=== PATIENT | male | born 1965 | race Caucasian/White ===

== ENCOUNTER 2018-10-23 06:57 | Day surgery (SDC) | payer OTHER ==
[~2018-10-23 06:57] MED LIST: LACTATED RINGERS 1,000 ML IV SCH
[2018-10-23 07:15] VITALS: TEMP 98.2
[2018-10-23] MEDS ORDERED: PROPOFOL 10 MG/ML 20 ML VIAL IV ONE (07:44)
--- NOTE | 2018-10-23 07:47 | P.GSHP ---
History of Present Illness H&P Date: 10/23/18 Chief Complaint: Screening colonoscopy This a 53-year-old male presents today for screening colonoscopy. Patient denies any significant GI complaints. Past Medical History Past Medical History: Cancer, GERD/Reflux, Hypertension Additional Past Medical History / Comment(s): CANCER: RIGHT KIDNEY AND TESTICULAR. History of Any Multi-Drug Resistant Organisms: None Reported Additional Past Surgical History / Comment(s): RIGHT KIDNEY AND TESTICLE REMOVED Past Anesthesia/Blood Transfusion Reactions: No Reported Reaction Past Psychological History: Depression Smoking Status: Current every day smoker Past Alcohol Use History: Rare Additional Past Alcohol Use History / Comment(s): HAS SMOKED FOR 35 YEARS AND 1PPD. Past Drug Use History: None Reported Medications and Allergies Home Medications Medication Instructions Recorded Confirmed Type Escitalopram [Lexapro] 10 mg PO QAM 10/22/18 10/23/18 History Metoprolol Succinate [Toprol XL] 50 mg PO HS 10/22/18 10/23/18 History Omeprazole 20 mg PO QAM 10/22/18 10/23/18 History amLODIPine [Norvasc] 5 mg PO QAM 10/22/18 10/23/18 History Allergies Allergy/AdvReac Type Severity Reaction Status Date / Time No Known Allergies Allergy Verified 10/23/18 07:08 Surgical - Exam Vital Signs Temp Pulse Resp BP Pulse Ox 98.2 F 70 17 162/76 95 10/23/18 07:13 10/23/18 07:13 10/23/18 07:13 10/23/18 07:13 10/23/18 07:13 - General well developed, well nourished, no distress - Eyes PERRL - ENT normal pinna - Neck no masses - Respiratory normal expansion - Cardiovascular Rhythm: regular - Abdomen Abdomen: soft, non tender Assessment and Plan Assessment: We'll perform screening colonoscopy
--- NOTE | 2018-10-23 08:05 | P.OP ---
Date of Procedure: 10/23/18 Preoperative Diagnosis: Screening colonoscopy Postoperative Diagnosis: Colon polyps Procedure(s) Performed: Colonoscopy Anesthesia: MAC Surgeon: Bhavesh Crespo Pathology: other (With colon polyp, rectal polyp) Condition: stable Disposition: PACU Description of Procedure: The patient's placed on the endoscopy table in the lateral position. He received IV sedation. Digital rectal exam was performed which revealed no abnormalities. The flexible colonoscope was then placed patient anus passed throughout the entire colon. The ileocecal valve was visualized. The cecum, ascending and transverse colon appeared normal. In the descending colon there were no polyps or diverticula seen the scope was then brought back the sigmoid colon and several small polyps removed with the cold forcep. Scope was then brought back the rectum and another polyp was seen and removed with cold forcep. Scope was withdrawn for patient.
[2018-10-23 08:24] VITALS: BP 132/77; PULSE 57; RESP 18
== END 2018-10-23 08:40 | disposition home or self-care (01) ==
LOC: ORWHC2ENDO 06:57
PROVIDERS: ATTEND Surgery
DX: Z12.11 Encounter for screening for malignant neoplasm of colon (principal); K62.1 Rectal polyp; K52.9 Noninfective gastroenteritis and colitis, unspecified; K21.9 Gastro-esophageal reflux disease without esophagitis; I10 Essential (primary) hypertension; F17.210 Nicotine dependence, cigarettes, uncomplicated; F32.9 Major depressive disorder, single episode, unspecified; Z85.528 Personal history of other malignant neoplasm of kidney; Z85.47 Personal history of malignant neoplasm of testis; Z79.899 Other long term (current) drug therapy
CPT/HCPCS: 45380; J2704; 88305

== ENCOUNTER 2019-05-12 07:14 | Inpatient (IN) | payer OTHER ==
[2019-05-12] MEDS ORDERED: NITROGLYCERIN OINT 1 INCH/GM PACKET TOPICAL STA (07:36)
[2019-05-12] MEDS ORDERED: ASPIRIN 81 MG PO STA (07:36)
--- NOTE | 2019-05-12 07:40 | ED ---
General Adult HPI - General Chief complaint: Chest Pain Stated complaint: Chest Pain Time Seen by Provider: 05/12/19 07:20 Source: patient, RN notes reviewed Mode of arrival: ambulatory Limitations: no limitations - History of Present Illness Initial comments: This is a 53-year-old male who presents emergency department with past history significant for borderline diabetes high blood pressure he is unsure about his cholesterol and he is a smoker. Patient also states his grandfather had significant heart disease. Patient comes in today because about an hour and half prior to arrival he had central substernal chest pain that he hasn't had the past. It is not reproducible does not get worse with deep breathing. Patient denied any radiation of the pain. Patient denies any shortness of breath patient denied any nausea. Patient denies any abdominal pain. Patient denies any recent fever chills or cough. Patient patient denies any recent hea vy lifting or trauma. Patient denies any lightheadedness or dizziness. Patient denies headache patient denies any numbness or weakness per patient denies any leg swelling or calf tenderness. - Related Data Home Medications Medication Instructions Recorded Confirmed Escitalopram [Lexapro] 10 mg PO QAM 10/22/18 05/12/19 Metoprolol Succinate [Toprol XL] 50 mg PO HS 10/22/18 05/12/19 Omeprazole 20 mg PO QAM 10/22/18 05/12/19 amLODIPine [Norvasc] 5 mg PO QAM 10/22/18 05/12/19 Aspirin [Children's Aspirin] 324 mg PO ONCE PRN 05/12/19 05/12/19 Allergies Allergy/AdvReac Type Severity Reaction Status Date / Time No Known Allergies Allergy Verified 05/12/19 08:25 Review of Systems ROS Statement: Those systems with pertinent positive or pertinent negative responses have been documented in the HPI. ROS Other: All systems not noted in ROS Statement are negative. Past Medical History Past Medical History: Cancer, GERD/Reflux, Hypertension Additional Past Medical History / Comment(s): 4CANCER: RIGHT KIDNEY AND TESTICULAR.+71+20. History of Any Multi-Drug Resistant Organisms: None Reported Additional Past Surgical History / Comment(s): RIGHT KIDNEY AND TESTICLE REMOVED Past Anesthesia/Blood Transfusion Reactions: No Reported Reaction Past Psychological History: Depression Smoking Status: Current every day smoker Past Alcohol Use History: Rare Past Drug Use History: None Reported General Exam - General Exam Comments Initial Comments: GENERAL: Patient is well-developed and well-nourished. Patient is nontoxic and well- hydrated and is in mild distress. ENT: Neck is soft and supple. No significant lymphadenopathy is noted. Oropharynx is clear. Moist mucous membranes. Neck has full range of motion without eliciting any pain. EYES: The sclera were anicteric and conjunctiva were pink and moist. Extraocular movements were intact and pupils were equal round and reactive to light. Eyelids were unremarkable. PULMONARY: Unlabored respirations. Good breath sounds bilaterally. No audible rales rhonchi or wheezing was noted. CARDIOVASCULAR: There is a regular rate and rhythm without any murmurs gallops or rubs. ABDOMEN: Soft and nontender with normal bowel sounds. SKIN: Skin is clear with no lesions or rashes and otherwise unremarkable. NEUROLOGIC: Patient is alert and oriented x3. Cranial nerves II through XII are grossly intact. Motor and sensory are also intact. Normal speech, volume and content. Symmetrical smile. MUSCULOSKELETAL: Normal extremities with adequate strength and full range of motion. No lower extremity swelling or edema. No calf tenderness. LYMPHATICS: No significant lymphadenopathy is noted PSYCHIATRIC: Normal psychiatric evaluation. Limitations: no limitations Course Vital Signs 05/12/19 05/12/19 05/12/19 07:21 08:00 08:30 Temperature 97.8 F Pulse Rate 79 60 56 L Respiratory 18 20 16 Rate Blood Pressure 155/82 162/82 134/87 O2 Sat by Pulse 96 98 97 Oximetry Medical Decision Making - Medical Decision Making EKG shows normal sinus rhythm at 60 beats a minute VT interval is 162 QRS is 104 QT interval 422 QTC is 422. Patient's EKG shows no ST segment elevation or depression or T wave abnormalities are noted. Chest x-ray shows no acute abnormality Patient was started on heparin. Patient's troponin was elevated. I spoke with Dr. Pruett she agreed to admit the patient admitted the patient I spoke with cardiology Dr. Pruitt. I continued heparin and aspirin Nitropaste on the floor. - Lab Data Result diagrams: 05/12/19 07:35 05/12/19 07:35 Lab Results 05/12/19 05/12/19 05/12/19 Range/Units 07:35 07:35 07:35 WBC 6.7 (3.8-10.6) k/uL RBC 4.85 (4.30-5.90) m/uL Hgb 15.1 (13.0-17.5) gm/dL Hct 43.5 (39.0-53.0) % MCV 89.7 (80.0-100.0) fL MCH 31.1 (25.0-35.0) pg MCHC 34.7 (31.0-37.0) g/dL RDW 13.1 (11.5-15.5) % Plt Count 208 (150-450) k/uL Neutrophils % 71 % Lymphocytes % 20 % Monocytes % 5 % Eosinophils % 2 % Basophils % 1 % Neutrophils # 4.8 (1.3-7.7) k/uL Lymphocytes # 1.3 (1.0-4.8) k/uL Monocytes # 0.4 (0-1.0) k/uL Eosinophils # 0.1 (0-0.7) k/uL Basophils # 0.1 (0-0.2) k/uL PT 9.6 (9.0-12.0) sec INR 0.9 (<1.2) APTT 23.2 (22.0-30.0) sec Sodium 140 (137-145) mmol/L Potassium 3.8 (3.5-5.1) mmol/L Chloride 105 (98-107) mmol/L Carbon Dioxide 28 (22-30) mmol/L Anion Gap 7 mmol/L BUN 19 (9-20) mg/dL Creatinine 1.11 (0.66-1.25) mg/dL Est GFR (CKD-EPI)AfAm 87 (>60 ml/min/1.73 sqM) Est GFR (CKD-EPI)NonAf 76 (>60 ml/min/1.73 sqM) Glucose 122 H (74-99) mg/dL Calcium 8.9 (8.4-10.2) mg/dL Magnesium 2.0 (1.6-2.3) mg/dL Total Bilirubin 0.8 (0.2-1.3) mg/dL AST 17 (17-59) U/L ALT 20 L (21-72) U/L Alkaline Phosphatase 87 (38-126) U/L Troponin I (0.000-0.034) ng/mL Total Protein 6.7 (6.3-8.2) g/dL Albumin 3.9 (3.5-5.0) g/dL 05/12/19 Range/Units 07:35 WBC (3.8-10.6) k/uL RBC (4.30-5.90) m/uL Hgb (13.0-17.5) gm/dL Hct (39.0-53.0) % MCV (80.0-100.0) fL MCH (25.0-35.0) pg MCHC (31.0-37.0) g/dL RDW (11.5-15.5) % Plt Count (150-450) k/uL Neutrophils % % Lymphocytes % % Monocytes % % Eosinophils % % Basophils % % Neutrophils # (1.3-7.7) k/uL Lymphocytes # (1.0-4.8) k/uL Monocytes # (0-1.0) k/uL Eosinophils # (0-0.7) k/uL Basophils # (0-0.2) k/uL PT (9.0-12.0) sec INR (<1.2) APTT (22.0-30.0) sec Sodium (137-145) mmol/L Potassium (3.5-5.1) mmol/L Chloride (98-107) mmol/L Carbon Dioxide (22-30) mmol/L Anion Gap mmol/L BUN (9-20) mg/dL Creatinine (0.66-1.25) mg/dL Est GFR (CKD-EPI)AfAm (>60 ml/min/1.73 sqM) Est GFR (CKD-EPI)NonAf (>60 ml/min/1.73 sqM) Glucose (74-99) mg/dL Calcium (8.4-10.2) mg/dL Magnesium (1.6-2.3) mg/dL Total Bilirubin (0.2-1.3) mg/dL AST (17-59) U/L ALT (21-72) U/L Alkaline Phosphatase (38-126) U/L Troponin I 0.137 H* (0.000-0.034) ng/mL Total Protein (6.3-8.2) g/dL Albumin (3.5-5.0) g/dL Critical Care Time Critical Care Time: Yes Total Critical Care Time: 35 Disposition Clinical Impression: Non-STEMI (non-ST elevated myocardial infarction) Disposition: ADMITTED IP TO THIS HOSP Referrals: Aki Apple DO [Primary Care Provider] - 1-2 days Time of Disposition: 08:52
[2019-05-12 07:53] LABS: Basophils # (A) 0.1 k/uL (0-0.2); Basophils % (A) 1 %; Eosinophils # (A) 0.1 k/uL (0-0.7); Eosinophils % (A) 2 %; HCT 43.5 % (39.0-53.0); HGB 15.1 gm/dL (13.0-17.5); Lymphocytes # (A) 1.3 k/uL (1.0-4.8); Lymphocytes % (A) 20 %; MCH 31.1 pg (25.0-35.0); MCHC 34.7 g/dL (31.0-37.0); MCV 89.7 fL (80.0-100.0); Mean Platelet Volume 5.8; Monocytes # (A) 0.4 k/uL (0-1.0); Monocytes % (A) 5 %; Neutrophils # (A) 4.8 k/uL (1.3-7.7); Neutrophils % (A) 71 %; Platelet Count 208 k/uL (150-450); RBC 4.85 m/uL (4.30-5.90); RDW 13.1 % (11.5-15.5); WBC 6.7 k/uL (3.8-10.6)
[2019-05-12 08:00] LABS: INR 0.9 (<1.2); Partial Thromboplastin Time 23.2 sec (22.0-30.0); Prothrombin Time 9.6 sec (9.0-12.0)
--- NOTE | 2019-05-12 08:02 | XR ---
EXAMINATION TYPE: XR chest 2V DATE OF EXAM: 05/12/2019 HISTORY: Chest Pain. REFERENCE: Previous study dated 04/18/2011. FINDINGS: There is some scarring or atelectasis at the left lung base. Lungs are otherwise clear. Ple ural space are clear. Heart size upper limits of normal. IMPRESSION: SCARRING VERSUS ATELECTASIS, LEFT LUNG BASE.
[2019-05-12 08:07] LABS: Albumin 3.9 g/dL (3.5-5.0); Calcium 8.9 mg/dL (8.4-10.2); Potassium 3.8 mmol/L (3.5-5.1); Total Bilirubin 0.8 mg/dL (0.2-1.3); Total Protein 6.7 g/dL (6.3-8.2)
[2019-05-12] MEDS ORDERED: HEPARIN SODIUM,PORCINE 5,000 UNIT/ML 1 ML VIAL IV ONE (08:35)
[2019-05-12] MEDS: HEPARIN SOD,PORK IN 0.45% NACL 25,000 UNIT in 0.45% NACL 1 250ML.BAG IV SCH (08:47)
[2019-05-12] MEDS ORDERED: NITROGLYCERIN SL TABS 0.4 MG TAB SUBLINGUAL PRN (08:54)
[2019-05-12] MEDS ORDERED: PANTOPRAZOLE 40 MG/10 ML VIAL IVP SCH (10:15)
[2019-05-12 10:25] VITALS: BMI 39.8
--- NOTE | 2019-05-12 11:01 | P.HPIM ---
History of Present Illness 53-year-old with comments of epigastric abdominal burning sensation patient ate part of presents today. Patient's pain is about 2/10 in severity nonradiating and nonexertional little not associated with food not associated deep breathing denied any lightheadedness or diaphoresis. Patient has elevated troponin of 0.137 patient was started on IV heparin was admitted. Will repeat 2 more sets of troponins patient probably has non-ST elevation microinfarction involving RCA. Echo EKG please refer to cardiology documentation for EKG Review of Systems REVIEW OF SYSTEMS: CONSTITUTIONAL: No fever, no malaise, no fatigue. HEENT: No recent visual problems or hearing problems. Denied any sore throat. CARDIOVASCULAR: No orthopnea, PND, no palpitations, no syncope. PULMONARY: No shortness of breath, no cough, no hemoptysis. GASTROINTESTINAL: No diarrhea, no nausea, no vomiting. NEUROLOGICAL: No headaches, no weakness, no numbness. HEMATOLOGICAL: Denies any bleeding or petechiae. GENITOURINARY: Denies any burning micturition, frequency, or urgency. MUSCULOSKELETAL/RHEUMATOLOGICAL: Denies any joint pain, swelling, or any muscle pain. ENDOCRINE: Denies any polyuria or polydipsia. The rest of the 14-point review of systems is negative. Past Medical History Past Medical History: Cancer, GERD/Reflux, Hypertension Additional Past Medical History / Comment(s): 4CANCER: RIGHT KIDNEY AND TESTICULAR.+71+20. History of Any Multi-Drug Resistant Organisms: None Reported Additional Past Surgical History / Comment(s): RIGHT KIDNEY AND TESTICLE REMOVED Past Anesthesia/Blood Transfusion Reactions: No Reported Reaction Past Psychological History: Depression Smoking Status: Current every day smoker Past Alcohol Use History: Rare Additional Past Alcohol Use History / Comment(s): HAS SMOKED FOR 35 YEARS AND 1PPD. Past Drug Use History: None Reported Medications and Allergies Home Medications Medication Instructions Recorded Confirmed Type Escitalopram [Lexapro] 10 mg PO QAM 10/22/18 05/12/19 History Metoprolol Succinate [Toprol XL] 50 mg PO HS 10/22/18 05/12/19 History Omeprazole 20 mg PO QAM 10/22/18 05/12/19 History amLODIPine [Norvasc] 5 mg PO QAM 10/22/18 05/12/19 History Aspirin [Children's Aspirin] 324 mg PO ONCE PRN 05/12/19 05/12/19 History Allergies Allergy/AdvReac Type Severity Reaction Status Date / Time No Known Allergies Allergy Verified 05/12/19 08:25 Physical Exam Vitals: Vital Signs Temp Pulse Pulse Resp BP BP Pulse Ox 05/12/19 09:30 97.7 F 55 L 16 142/78 95 05/12/19 09:00 97.7 F 57 L 16 150/89 97 05/12/19 08:30 56 L 16 134/87 97 05/12/19 08:00 60 20 162/82 98 05/12/19 07:21 97.8 F 79 18 155/82 96 Intake and Output 05/11/19 05/12/19 05/12/19 22:59 06:59 14:59 Other: Weight 143.789 kg PHYSICAL EXAMINATION: GENERAL: The patient is alert and oriented x3, not in any acute distress. Obese HEENT: Pupils are round and equally reacting to light. EOMI. No scleral icterus. No conjunctival pallor. Normocephalic, atraumatic. No pharyngeal erythema. No thyromegaly. CARDIOVASCULAR: S1 and S2 present. No murmurs, rubs, or gallops. PULMONARY: Chest is clear to auscultation, no wheezing or crackles. ABDOMEN: Soft, nontender, nondistended, normoactive bowel sounds. No palpable organomegaly. MUSCULOSKELETAL: No joint swelling or deformity. EXTREMITIES: No cyanosis, clubbing, or pedal edema. NEUROLOGICAL: Gross neurological examination did not reveal any focal deficits. SKIN: No rashes. Results CBC & Chem 7: 05/12/19 07:35 05/12/19 07:35 Labs: Abnormal Lab Results - Last 24 Hours (Table) 05/12/19 05/12/19 Range/Units 07:35 07:35 Glucose 122 H (74-99) mg/dL ALT 20 L (21-72) U/L Troponin I 0.137 H* (0.000-0.034) ng/mL Thrombosis Risk Factor Assmnt - Choose All That Apply Each Factor Represents 1 point: Age 41-60 years, Obesity (BMI >25) Thrombosis Risk Factor Assessment Total Risk Factor Score: 2 Thrombosis Risk Factor Assessment Level: Low Risk Assessment and Plan Plan: -Possible non-ST elevation microinfarction patient probably has inferior wall myocardial patient will be continued on IV heparin the other consideration is gaseous with reflux disease patient will be started on Protonix. -Gastroesophageal reflux disease next and-hypertension -Nicotine use: Counseling was provided -Depression -For above-mentioned chronic medical problems patient will be resumed on nicolas ropriate medications
[2019-05-12] MEDS: NITROGLYCERIN OINT 1 INCH/GM PACKET TOPICAL SCH ×3 (11:38→23:20)
[2019-05-12] MEDS: amLODIPine 5 MG TAB PO SCH (11:38)
[2019-05-12] MEDS: ATORVASTATIN 40 MG TAB PO SCH (12:40)
--- NOTE | 2019-05-12 13:35 | P.CRDCN ---
History of Present Illness Consult date: 05/12/19 Reason for Consult (text): Chest pain. Chief complaint: Chest pian History of present illness: HISTORY OF PRESENT ILLNESS AND PLAN: This is a 53-year-old male with history of borderline DM, hypertension, family history of CAD, GERD and current smoking one half pack per day x 30 years. Patient presents in the emergency department with complaints of mid sternal burning chest pressure that woke him from his sleep this morning. Patient had no nausea or diaphoresis with the episode. No nitroglycerin use. Patient states he went to a birthday green party yesterday for his 1-year-old grandchild, may have overeaten pizza and cake. Pt states he has a significant history of GERD. Patient currently resting comfortably in bed. Patient has no current chest pain, chest pressure, shortness of breath or palpitations. EKG shows sinus bradycardia, heart rate 58. Patient continues with IV heparin and IV Protonix. Patient has never followed with cardiology. PCP Dr. Apple. SIGNIFICANT PAST MEDICAL HISTORY: Borderline DM, hypertension, family history of CAD, GERD and current smoking one half pack per day x 30 years. PAST SURGICAL HISTORY: See list. EKG shows [SB], heart rate 58 bpm. Troponins positive x1. 0.137 SIGNIFICANT LABORATORY VALUES: CBC WNL. BMP WNL. Glucose 122. Chest x-ray [No acute process. Possible left atelectasis.]. No prior echo or stress testing known. REVIEW OF SYSTEMS: CONSTITUTIONAL: [Denies fever. Denies chills.] EYES: Denies blurred vision. [Denies blurred vision or vision changes. Denies eye pain.] EARS, NOSE, MOUTH & THROAT: [Denies headache. Denies sore throat. Denies ear pain Denies hemoptysis.] CARDIOVASCULAR: [Complains of prior burning chest pain/pressure that was midsternal. Denies shortness of breath. Denies orthopnea. Denies PND. Denies pa lpitations.] RESPIRATORY: [Denies cough. Denies shortness of breath. ] GASTROINTESTINAL: [Denies abdominal pain or distention. Denies diarrhea. Denies constipation. Denies nausea. Denies vomiting. Complains of heartburn/GERD.] MUSCULOSKELETAL: [Denies myalgias.] INTEGUMENTARY: [Denies pruitis. Denies rash.] ENDOCRINE: [Denies fatigue. Denies weight change. Denies polydipsia. Denies polyurina Denies heat/cold intolerance.] GENITOURINARY:[ Denies burning, hematuria or urgency with micturation.] HEMATOLOGIC: [Denies history of anemia. Denies bleeding.] NEUROLOGIC: [Denies numbness. Denies tingling. Denies weakness.] PSYCHIATRIC: [Denies anxiety. Denies depression.] PHYSICAL EXAM: VITAL SIGNS: VSS. GENERAL: Well developed, in no acute distress. HEENT: Head is atraumatic, normocephalic. Pupils are equal, round. Extra ocular movements intact. Mucous membranes moist. Neck supple. No JVD. No carotid bruit. No thyromegaly. LUNGS: Clear to auscultation no wheezes, rales or rhonchi. No chest wall tenderness on palpation or with deep breathing. HEART: Regular rate and rhythm, no rubs or gallops. S1 and S2 heard. No murmur. ABDOMEN: Abdominal exam, WNL. Bowel sounds x4 quads. Soft, non-tender, without masses, organomegaly, or abdominal aorta enlargement. EXTREMITIES/VASCULAR: Extremities have easily palpable radial, femoral, dorsalis pedis and posterior tibial pulses. No cyanosis, calf tenderness. No BLE edema. NEUROLOGIC: Patient is awake, alert and oriented x3. No focal neurologic abnormalities. FINAL IMPRESSION: 1. [NSTEMI]. 2. [Hypertension]. 3. [GERD]. 4. Smoking 1/2 PPD currently 5. Family history of CAD PLAN: [Patient to echocardiogram. START Lipitor 40 mg daily. Continue same all other medical/medication regime. Smoking cessation education. Heart healthy diet. Nothing by mouth after midnight. If symptoms re-occur or troponin p rofile continues with elevation will consider cardiac cath in a.m.] Nurse Practitioner note has been reviewed by the Physician. Signing provider agrees with the documented findings, assessment and plan of care. Past Medical History Past Medical History: Cancer, GERD/Reflux, Hypertension Additional Past Medical History / Comment(s): 4CANCER: RIGHT KIDNEY AND TESTICULAR.+71+20. History of Any Multi-Drug Resistant Organisms: None Reported Additional Past Surgical History / Comment(s): RIGHT KIDNEY AND TESTICLE REMOVED Past Anesthesia/Blood Transfusion Reactions: No Reported Reaction Past Psychological History: Depression Smoking Status: Current every day smoker Past Alcohol Use History: Rare Additional Past Alcohol Use History / Comment(s): HAS SMOKED FOR 35 YEARS AND 1PPD. Past Drug Use History: None Reported Medications and Allergies Home Medications Medication Instructions Recorded Confirmed Type Escitalopram [Lexapro] 10 mg PO QAM 10/22/18 05/12/19 History Metoprolol Succinate [Toprol XL] 50 mg PO HS 10/22/18 05/12/19 History Omeprazole 20 mg PO QAM 10/22/18 05/12/19 History amLODIPine [Norvasc] 5 mg PO QAM 10/22/18 05/12/19 History Aspirin [Children's Aspirin] 324 mg PO ONCE PRN 05/12/19 05/12/19 History Allergies Allergy/AdvReac Type Severity Reaction Status Date / Time No Known Allergies Allergy Verified 05/12/19 08:25 Physical Exam Vitals: Vital Signs Temp Pulse Pulse Resp BP BP Pulse Ox 05/12/19 12:00 97.7 F 54 L 16 134/72 94 L 05/12/19 09:30 97.7 F 55 L 16 142/78 95 05/12/19 09:00 97.7 F 57 L 16 150/89 97 05/12/19 08:30 56 L 16 134/87 97 05/12/19 08:00 60 20 162/82 98 05/12/19 07:21 97.8 F 79 18 155/82 96 Intake and Output 05/11/19 05/12/19 05/12/19 22:59 06:59 14:59 Intake Total 360 Balance 360 Intake: Oral 360 Other: Weight 143.789 kg Results 05/12/19 07:35 05/12/19 07:35 Cardiac Enzymes 05/12/19 05/12/19 Range/Units 07:35 07:35 AST 17 (17-59) U/L Troponin I 0.137 H* (0.000-0.034) ng/mL Coagulation 05/12/19 Range/Units 07:35 PT 9.6 (9.0-12.0) sec APTT 23.2 (22.0-30.0) sec CBC 05/12/19 Range/Units 07:35 WBC 6.7 (3.8-10.6) k/uL RBC 4.85 (4.30-5.90) m/uL Hgb 15.1 (13.0-17.5) gm/dL Hct 43.5 (39.0-53.0) % Plt Count 208 (150-450) k/uL Comprehensive Metabolic Panel 05/12/19 Range/Units 07:35 Sodium 140 (137-145) mmol/L Potassium 3.8 (3.5-5.1) mmol/L Chloride 105 (98-107) mmol/L Carbon Dioxide 28 (22-30) mmol/L BUN 19 (9-20) mg/dL Creatinine 1.11 (0.66-1.25) mg/dL Glucose 122 H (74-99) mg/dL Calcium 8.9 (8.4-10.2) mg/dL AST 17 (17-59) U/L ALT 20 L (21-72) U/L Alkaline Phosphatase 87 (38-126) U/L Total Protein 6.7 (6.3-8.2) g/dL Albumin 3.9 (3.5-5.0) g/dL Current Medications Generic Name Dose Route Start Last Admin Trade Name Freq PRN Reason Stop Dose Admin Amlodipine Besylate 5 mg 05/12/19 11:00 05/12/19 11:38 Norvasc PO 5 mg QAM [facility] Administration Aspirin 325 mg 05/13/19 09:00 Aspirin PO DAILY [facility] Atorvastatin Calcium 40 mg 05/12/19 12:00 05/12/19 12:40 Lipitor PO 40 mg DAILY [facility] Administration Escitalopram Oxalate 10 mg 05/13/19 09:00 Lexapro PO QAM [facility] Heparin Sodium/Sodium Chloride 250 mls @ 10.001 mls/hr 05/12/19 08:45 05/12/19 08:47 25,000 unit/ Sodium Chloride IV 6.955 units/kg/hr .Q24H VITO 10.001 mls/hr Administration Protocol 6.955 UNITS/KG/HR Metoprolol Succinate 50 mg 05/12/19 21:00 Toprol Xl PO HS [facility] Nitroglycerin 0.4 mg 05/12/19 08:54 Nitrostat SUBLINGUAL Q5M PRN Chest Pain Nitroglycerin 1 inch 05/12/19 12:00 05/12/19 11:38 Nitro-Bid Oint TOPICAL 1 inch Q6HR VITO Administration Pantoprazole Sodium 40 mg 05/13/19 07:30 Protonix PO AC-[id number] VITO Intake and Output 05/11/19 05/12/19 05/12/19 22:59 06:59 14:59 Intake Total 360 Balance 360 Intake: Oral 360 Other: Weight 143.789 kg Patient Weight 05/13/19 06:59 Weight 143.789 kg 05/12/19 07:35 05/12/19 07:35 - EKG Interpretation EKG shows: bradycardia EKG Interpretations (text) SB
[2019-05-12] MEDS ORDERED: HEPARIN SODIUM,PORCINE 5,000 UNIT/ML 1 ML VIAL IV STA (15:18)
[2019-05-12] MEDS ORDERED: METOPROLOL SUCCINATE (ER) 50 MG TAB.ER.24H PO SCH (21:00)
[2019-05-13] MEDS: HEPARIN SOD,PORK IN 0.45% NACL 25,000 UNIT in 0.45% NACL 1 250ML.BAG IV SCH (06:39)
[2019-05-13] MEDS: PANTOPRAZOLE 40 MG TABLET PO SCH (06:39)
[2019-05-13] MEDS: NITROGLYCERIN OINT 1 INCH/GM PACKET TOPICAL SCH (06:39)
[2019-05-13 06:46] LABS: Cholesterol 151 mg/dL (<200); HDL Cholesterol 32 mg/dL (40-60); LDL Cholesterol,Calculated 97 mg/dL (0-99); Triglycerides 109 mg/dL (<150)
[2019-05-13] MEDS ORDERED: SODIUM CHLORIDE 0.9% 1,000 ML in EMPTY BAG 1 BAG IV ONE (07:36)
[2019-05-13] MEDS ORDERED: NITROGLYCERIN SL TABS 0.4 MG TAB SUBLINGUAL PRN (07:36)
[2019-05-13] MEDS ORDERED: ASPIRIN 325 MG TAB PO STA (07:36)
[2019-05-13] MEDS ORDERED: ALPRAZolam 0.5 MG TAB PO PRN (07:36)
[2019-05-13] MEDS ORDERED: ALPRAZolam 0.25 MG TAB PO PRN (07:36)
[2019-05-13] MEDS ORDERED: ATORVASTATIN 80 MG TAB PO STA (07:36)
[2019-05-13] MEDS: ATORVASTATIN 40 MG TAB PO SCH (07:37)
[2019-05-13] MEDS: amLODIPine 5 MG TAB PO SCH (08:11)
[2019-05-13] MEDS: ESCITALOPRAM 10 MG TAB PO SCH (08:11)
[2019-05-13] MEDS ORDERED: ASPIRIN 325 MG TAB PO SCH (09:00)
[2019-05-13] MEDS ORDERED: VERAPAMIL 2.5 MG/ML 2 ML AMP ONE (09:10)
[2019-05-13] MEDS ORDERED: LIDOCAINE 1% INJ 10MG/ML (20 ML MDV) ONE (09:11)
[2019-05-13] MEDS ORDERED: HEPARIN SODIUM 1,000 UN/ML (10ML VL) ONE (09:11)
[2019-05-13] MEDS ORDERED: MIDAZOLAM PF (FBP) 2 MG/2 ML VIAL IVP ONE (09:30)
[2019-05-13] MEDS ORDERED: LIDOCAINE 1% INJ 10MG/ML (20 ML MDV) SQ ONE (09:34)
[2019-05-13] MEDS ORDERED: HEPARIN SODIUM 1,000 UN/ML (10ML VL) IV ONE (09:39)
[2019-05-13] MEDS ORDERED: VERAPAMIL SYRINGE (5 MG/10 ML) INTRAARTER ONE ×2 (09:39→10:45)
[2019-05-13] MEDS ORDERED: IV FLUID CONTINUATION 1,000 ML IV ONE (09:40)
[2019-05-13] MEDS ORDERED: HYDROmorphone 1 MG/ML 1 ML SYRINGE ONE (10:06)
[2019-05-13] MEDS ORDERED: HYDROmorphone 1 MG/ML 1 ML SYRINGE IVP ONE (10:12)
[2019-05-13] MEDS ORDERED: BIVALIRUDIN 250 MG in SODIUM CHLORIDE 0.9% 50 ML IV ONE ×2 (10:15→10:41)
[2019-05-13] MEDS ORDERED: BIVALIRUDIN BOLUS 250 MG/50 ML IV ONE (10:15)
[2019-05-13] MEDS ORDERED: NITROGLYCERIN 1000MCG/10ML SYRINGE INTRACORON ONE ×2 (10:25→10:39)
[2019-05-13] MEDS ORDERED: TICAGRELOR 90 MG TAB ONE (10:48)
[2019-05-13] MEDS ORDERED: TICAGRELOR 90 MG TAB PO ONE (10:52)
[2019-05-13] MEDS ORDERED: IOPAMIDOL-370 125ML BTL INJ ONE ×2 (10:52)
[2019-05-13] MEDS ORDERED: HYDROcodone/APAP 7.5-325MG 1 EACH TAB PO ONE (12:54)
[2019-05-13] MEDS ORDERED: LOSARTAN 50 MG TAB PO SCH (21:00)
--- NOTE | 2019-05-13 21:53 | PCN ---
PROCEDURE NOTE DATE OF SERVICE: 05/13/2019 PROCEDURES: 1. Left heart catheterization and coronary angiography. 2. Percutaneous transluminal coronary angioplasty and stenting of mid LAD. 3. Fractional flow reserve assessment of mid LAD. PERFORMED BY: Dr. Jes Pruitt CLINICAL INFORMATION: Mr. Addison Zazueta is a very obese 53-year-old gentleman with history of hypertension and smoking who came into the hospital yesterday with chest pain suggestive of angina. He had elevated troponin suggestive of a [id number] AL. He was advised cardiac catheterization after due discussion regarding risks, benefits and options. PROCEDURE NOTE: Under local anesthesia and strict aseptic precautions, a 6-Serbian introducer was placed in the right radial artery. Using a JL4 and a JR4 catheter, I performed selective coronary angiography of the coronary arteries. I also used the same right catheter to check LV pressures. LV gram was not performed. I noted that there was a mid LAD lesion along with a small occlusion of a small septal branch. I suggested that I will perform an FFR of the LAD and try to open the septal branch and proceeded to perform this in the same setting. LV gram was not performed. CARDIAC CATHETERIZATION FINDINGS: The left ventricular end-diastolic pressure was about 12 to 13 mmHg without any gradient across the aortic valve. CORONARY ANGIOGRAPHY FINDINGS: RIGHT CORONARY ARTERY: This is a technically dominant vessel, has no significant disease in the proximal and mid portion. Distally it gives off a small PLV, large PDA and supplies a sizable amount of myocardium. No significant disease other than minor irregularities in the right coronary artery. LEFT MAIN CORONARY ARTERY: Short, patent, disease-free vessel that bifurcates into LAD and circumflex. LEFT ANTERIOR DESCENDING CORONARY ARTERY: Good-caliber vessel, quite large in caliber and distribution, gives off a septal branch, and after the septal branch there is an eccentric area of narrowing with haziness, and a small septal branch that comes off from this area is also occluded. Beyond this is another good-sized diagonal branch and then the vessel extends all the way to the apex and curves over the apex to supply the inferoapical portion of the left ventricle. LAD is a very large-caliber, large- distribution vessel. LEFT POSTERIOR CIRCUMFLEX CORONARY ARTERY: Technically a nondominant vessel. Good caliber. Good distribution. Gives off a very high obtuse marginal that runs laterally, has no significant disease. Mid circumflex has about a 70% narrowing, very focal, and beyond it the caliber of the vessel is small and the distribution is also small. Circumflex is nondominant. Left ventriculogram was not performed. FINAL IMPRESSION: This patient has a right-dominant system. He has a large LAD also. Mid LAD has a plaque rupture, about 60% stenosis, with a small septal branch that seems to be occluded. LAD is a very large-distribution vessel. RCA is free of significant disease. Circumflex after a good-sized obtuse marginal in the mid portion has a 70% narrowing, but limited amount of myocardium is being supplied by it beyond the stenosis. LV gram was not performed. Filling pressures are normal. RECOMMENDATIONS: I recommended attempted PCI of the septal or diagonal branch that came off and also FFR and intervention if necessary. INTERVENTION PROCEDURE DETAILS: A JL3.5 guide catheter was used to cannulate the left coronary artery. A run-through wire was used to advance under fluoroscopic guidance and I tried to cross a small stump. This appeared to be a small septal branch with limited flow. I then exchanged this wire and used a Verrata wire and crossed the vessel and crossed the lesion in the mid LAD and kept it distally. After appropriate assessment of zeroing and balancing, IFR was obtained. IFR was about 0.63. Using the same wire, I deployed a 3.5 caliber 12 mm long Xience stent and deployed this at 12 atmospheres. Patient had chest discomfort and EKG changes involving the anterior leads. Excellent angiographic result was achieved. The Verrata wire was deformed. This wire was taken out and a new Verrata wire used. Repeat IFR was performed and this was 1.0. Patient received intracoronary nitroglycerin. He also received Angiomax bolus and infusion. He received 180 mg of Brilinta. The sheath was then taken out and a TR band applied as per protocol with saturation of the fingers of the right hand of about 92%. Excellent angiographic result was achieved without complication. The findings were discussed with the patient. There were no family members available to discuss. MMODL / IJN: [id number] /
--- NOTE | 2019-05-13 23:43 | P.PN ---
Subjective Progress Note Date: 05/13/19 This is a pleasant 53-year-old white male who was admitted to the hospital with acute atypical chest pain and apparent non-STEMI. Patient is currently getting an echocardiogram and en route to get a heart catheterization shortly thereafter. He denies any current chest pain but admits to shortness of breath denies any nausea vomiting or diaphoresis. Objective - Vital Signs Vital signs: Vital Signs Temp 98.2 F 05/13/19 20:23 Pulse 58 L 05/13/19 20:23 Resp 17 05/13/19 20:23 BP 158/78 05/13/19 20:23 Pulse Ox 94 L 05/13/19 20:23 Intake & Output 05/13/19 05/13/19 05/14/19 06:59 18:59 06:59 Intake Total 184.660 975 Output Total 1000 Balance 184.660 -25 Weight 143 kg Intake: IV 255 Intake, IV Titration 184.660 Amount Heparin Sod,Pork in 0.45% 184.660 NaCl 25,000 unit In 0.45 % NaCl 1 250ml.bag @ 6. 955 UNITS/KG/HR 10.001 mls/hr IV .Q24H VITO Rx#: [id number] Oral 720 Output: Urine 1000 Other: # Voids 2 1 - Exam GENERAL: This is a 53-year-old in no apparent distress at the time of examination. Pleasant and cooperative. HEENT: Head is atraumatic, normocephalic. Pupils are equal, round, and reactive to light. Sclerae anicteric. Conjunctivae are clear. Mucus membranes of the mouth are moist. Neck is supple. RESPIRATORY: Clear to auscultation. No wheezes, rales, or rhonchi. No use of accessory muscles. Patient maintaining oxygen saturation greater than 92%. No chest wall tenderness is noted on palpation or with deep breathing. CARDIOVASCULAR: Regular rate and rhythm. S1 and S2 noted. No systolic or diastolic murmur auscultated. No JVD noted. No S3 or S4 noted. GASTROINTESTINAL: No distention noted. Abdomen soft and round. Normal active bowel sounds auscultated x 4 quadrants. No pain or tenderness noted upon palpation. INTEGUMENTARY: No cyanosis. No jaundice. No rashes noted. No cellulitis noted. EXTREMITIES: 2+ peripheral pulses. No evidence of peripheral edema. No calf tenderness noted. NEUROLOGIC: Cranial nerves II-XII intact. PSYCHIATRIC: Awake, alert, and oriented X 3. Appropriate affect. Intact judgement and insight. - Labs CBC & Chem 7: 05/12/19 07:35 05/12/19 07:35 Labs: Abnormal Lab Results - Last 24 Hours (Table) 05/13/19 05/13/19 Range/Units 05:21 05:21 APTT 54.8 H (22.0-30.0) sec HDL Cholesterol 32 L (40-60) mg/dL Assessment and Plan (1) Non-STEMI (non-ST elevated myocardial infarction) Current Visit: Yes Status: Acute Code(s): I21.4 - NON-ST ELEVATION (NSTEMI) MYOCARDIAL INFARCTION SNOMED Code(s): 47310729 (2) Morbid obesity Current Visit: Yes Status: Acute Code(s): E66.01 - MORBID (SEVERE) OBESITY DUE TO EXCESS CALORIES SNOMED Code(s): 272649817 (3) Hypertensive cardiovascular disease Current Visit: Yes Status: Acute Code(s): I11.9 - HYPERTENSIVE HEART DISEASE WITHOUT HEART FAILURE SNOMED Code(s): 76958954 (4) Gastroesophageal reflux disease Current Visit: Yes Status: Acute Code(s): K21.9 - GASTRO-ESOPHAGEAL REFLUX DISEASE WITHOUT ESOPHAGITIS SNOMED Code(s): 768660916 Plan: Plan patient will undergo heart catheterization today. Addendum patient underwent heart catheterization and received angioplasty and stent to the LAD. We'll continue to follow patient's progress.
[2019-05-14 07:02] LABS: Basophils # (A) 0.1 k/uL (0-0.2); Basophils % (A) 1 %; Eosinophils # (A) 0.2 k/uL (0-0.7); Eosinophils % (A) 3 %; HCT 43.6 % (39.0-53.0); HGB 14.2 gm/dL (13.0-17.5); Lymphocytes # (A) 1.5 k/uL (1.0-4.8); Lymphocytes % (A) 21 %; MCH 30.3 pg (25.0-35.0); MCHC 32.5 g/dL (31.0-37.0); MCV 93.2 fL (80.0-100.0); Mean Platelet Volume 6.7; Monocytes # (A) 0.5 k/uL (0-1.0); Monocytes % (A) 7 %; Neutrophils # (A) 4.7 k/uL (1.3-7.7); Neutrophils % (A) 67 %; Platelet Count 194 k/uL (150-450); RBC 4.68 m/uL (4.30-5.90); RDW 13.2 % (11.5-15.5); WBC 7.1 k/uL (3.8-10.6)
[2019-05-14 07:10] LABS: Calcium 8.7 mg/dL (8.4-10.2)
[2019-05-14] MEDS ORDERED: ATORVASTATIN 80 MG TAB PO SCH (09:00)
[2019-05-14] MEDS ORDERED: METOPROLOL SUCCINATE (ER) 50 MG TAB.ER.24H PO SCH (09:00)
[2019-05-14] MEDS ORDERED: TICAGRELOR 90 MG TAB PO SCH (09:00)
[2019-05-14] MEDS ORDERED: ASPIRIN 81 MG PO SCH (09:00)
[2019-05-14] MEDS: HEPARIN SOD,PORK IN 0.45% NACL 25,000 UNIT in 0.45% NACL 1 250ML.BAG IV SCH (09:02)
[2019-05-14] MEDS: amLODIPine 5 MG TAB PO SCH (09:03)
[2019-05-14] MEDS: PANTOPRAZOLE 40 MG TABLET PO SCH (09:03)
[2019-05-14] MEDS: ESCITALOPRAM 10 MG TAB PO SCH (09:03)
[2019-05-14 10:26] VITALS: BP 128/72; PULSE 59; RESP 18; TEMP 97.5
--- NOTE | 2019-05-14 10:47 | P.DS ---
Providers Date of admission: 05/12/19 08:54 Expected date of discharge: 05/14/19 Attending physician: Aki Apple Consults: 05/12/19 08:54 Consult Physician Urgent Consulting Provider: [facility] Consult Reason/Comments: Non-STEMI Do you want consulting provider notified?: Yes Primary care physician: Aki Apple [facility] Course: Final Diagnoses: (1) Non-STEMI (non-ST elevated myocardial infarction), status post cardiac catheterization, angioplasty with stenting of the LAD Current Visit: Yes Status: Acute Code(s): I21.4 - NON-ST ELEVATION (NSTEMI) MYOCARDIAL INFARCTION SNOMED Code(s): 97135207 (2) Morbid obesity Current Visit: Yes Status: Acute Code(s): E66.01 - MORBID (SEVERE) OBESITY DUE TO EXCESS CALORIES SNOMED Code(s): 498730523 (3) Hypertensive cardiovascular disease Current Visit: Yes Status: Acute Code(s): I11.9 - HYPERTENSIVE HEART DISEASE WITHOUT HEART FAILURE SNOMED Code(s): 19307019 (4) Gastroesophageal reflux disease Current Visit: Yes Status: Acute Code(s): K21.9 - GASTRO-ESOPHAGEAL REFLUX DISEASE WITHOUT ESOPHAGITIS SNOMED Code(s): 353162512 Hospital course:This is a pleasant 53-year-old white male who was admitted to the hospital with acute atypical chest pain and apparent non-STEMI. Patient is currently getting an echocardiogram and en route to get a heart catheterization shortly thereafter. He denies any current chest pain but admits to shortness of breath denies any nausea vomiting or diaphoresis. Patient underwent heart catheterization and received angioplasty and stent to the LAD. Tolerated procedure well. Patient will be discharged home today in a stable condition with guarded prognosis, pending final DC recommendations and clearance from cardiology. Exam GENERAL: Alert and oriented 3, no acute distress RESPIRATORY: Clear to auscultation. No wheezes, rales, or rhonchi. CARDIOVASCULAR: Regular rate and rhythm. S1 and S2 noted. No systolic or diastolic murmur auscultated. No JVD noted. No S3 or S4 noted. GASTROINTESTINAL: No distention noted. Abdomen soft and round. Normal active bowel sounds auscultated x 4 quadrants. No pain or tenderness noted upon palpation. NEUROLOGIC: Cranial nerves II-XII intact. No focal deficits. The impression and plan of care has been dictated as directed. : I performed a history and examination of this patient, discussed the same with the dictator. I agree with the dictator's note ,documented as a scribe. Any additional findings or plans will be noted. Patient Condition at Discharge: Stable Plan - Discharge Summary Discharge Rx Participant: Yes New Discharge Prescriptions: New Ticagrelor [Brilinta] 90 mg PO DAILY #30 tab Losartan [Cozaar] 50 mg PO DAILY@2100 #30 tab Atorvastatin [Lipitor] 80 mg PO DAILY #30 tab Nitroglycerin Sl Tabs [Nitrostat] 0.4 mg SUBLINGUAL Q5M PRN #100 tab PRN Reason: Chest Pain Continue amLODIPine [Norvasc] 5 mg PO QAM Metoprolol Succinate [Toprol XL] 50 mg PO HS Escitalopram [Lexapro] 10 mg PO QAM Omeprazole 20 mg PO QAM Aspirin [Children's Aspirin] 324 mg PO ONCE PRN PRN Reason: Chest Pain Discharge Medication List Escitalopram [Lexapro] 10 mg PO QAM 10/22/18 [History] Metoprolol Succinate [Toprol XL] 50 mg PO HS 10/22/18 [History] Omeprazole 20 mg PO QAM 10/22/18 [History] amLODIPine [Norvasc] 5 mg PO QAM 10/22/18 [History] Aspirin [Children's Aspirin] 324 mg PO ONCE PRN 05/12/19 [History] Atorvastatin [Lipitor] 80 mg PO DAILY #30 tab 05/14/19 [Rx] Losartan [Cozaar] 50 mg PO DAILY@2100 #30 tab 05/14/19 [Rx] Nitroglycerin Sl Tabs [Nitrostat] 0.4 mg SUBLINGUAL Q5M PRN #100 tab 05/14/19 [Rx] Ticagrelor [Brilinta] 90 mg PO DAILY #30 tab 05/14/19 [Rx] Follow up Appointment(s)/Referral(s): Aki Apple DO [Primary Care Provider] - 1 Week Davida Pruitt MD [STAFF PHYSICIAN] - 1 Week (Office will call with follow up appointment. ) Ambulatory/Diagnostic Orders: Complete Blood Count w/diff [LAB.AMB] Time Frame: 1 Week, Location: None Selected Patient Instructions/Handouts: How to Stop Smoking (DC), Heart Healthy Diet (DC), Coronary Intravascular Stent Placement (DC) Activity/Diet/Wound Care/Special Instructions: Pending final DC recommendations/clearance from cardiology
--- NOTE | 2019-05-14 12:01 | ECHOF ---
Referral Reason:chest pain MEASUREMENTS -------- HEIGHT: 182.9 cm WEIGHT: 142.9 kg BP: 142/76 RVIDd: 3.2 cm (< 3.3) IVSd: 1.3 cm (0.6 - 1.1) LVIDd: 5.1 cm (3.9 - 5.3) LVPWd: 1.5 cm (0.6 - 1.1) IVSs: 1.6 cm LVIDs: 3.9 cm LVPWs: 1.6 cm LA Diam: 4.8 cm (2.7 - 3.8) LAESV Index (A-L): 41.44 ml/m Ao Diam: 3.3 cm (2.0 - 3.7) AV Cusp: 2.2 cm (1.5 - 2.6) LA Diam: 4.8 cm (2.7 - 3.8) MV EXCURSION: 22.256 mm (> 18.000) MV EF SLOPE: 88 mm/s (70 - 150) EPSS: 0.3 cm MV E Oh: 0.60 m/s MV DecT: 195 ms MV A Oh: 0.83 m/s MV E/A Ratio: 0.72 RAP: 5.00 mmHg RVSP: 17.05 mmHg TAPSE: 24.30 mm FINDINGS -------- Sinus rhythm. This was a technically adequate study. The left ventricular size is normal. There is mild concentric left ventricular hypertrophy. Overa ll left ventricular systolic function is low-normal with, an EF between 50 - 55 %. The diastolic fi lling pattern is normal for the age of the patient 9.83. The right ventricle is normal in size. The left atrium is markedly dilated. LA is severely dilated >40 ml/m2 The right atrial size is normal. There is mild aortic valve sclerosis. There is no evidence of aortic regurgitation. Mild mitral annular calcification present. Mild mitral regurgitation is present. Mild tricuspid regurgitation present. Right ventricular systolic pressure is normal at < 35 mmHg. There is no evidence of pulmonary hypertension. There is no pulmonic regurgitation present. The aortic root size is normal. There is no pericardial effusion. CONCLUSIONS -------- 1. Sinus rhythm. 2. This was a technically adequate study. 3. The left ventricular size is normal. 4. There is mild concentric left ventricular hypertrophy. 5. Overall left ventricular systolic function is low-normal with, an EF between 50 - 55 %. 6. The diastolic filling pattern is normal for the age of the patient 9.83 7. The right ventricle is normal in size. 8. The left atrium is markedly dilated. 9. LA is severely dilated >40 ml/m2 10. The right atrial size is normal. 11. There is mild aortic valve sclerosis. 12. Mild mitral annular calcification present. 13. Mild mitral regurgitation is present. 14. Mild tricuspid regurgitation present. 15. Right ventricular systolic pressure is normal at < 35 mmHg. 16. There is no evidence of pulmonary hypertension. 17. There is no pulmonic regurgitation present. 18. The aortic root size is normal. 19. There is no pericardial effusion. FRUIT TESTER: Augusta Yuan RDCS
--- NOTE | 2019-05-14 12:57 | PN ---
PROGRESS NOTE Mr. Zazueta underwent PTCA and stenting of mid LAD, plaque rupture by the right radial approach, is doing well. Echo results are still pending. Vitals are stable. Labs are good. EKG is unremarkable. Vitals are stable. S1, S2 heard normally. Lungs are clear. Heart sounds heard distantly. Abdomen and lower extremity exam unchanged. The patient was advised to quit smoking. Continue current medications. Possible discharge today and I will see him in the office in one week. Advised not to return to work until further evaluation. Counseled regarding the need to quit smoking. MMODL / IJN: [id number] /
== END 2019-05-14 12:51 | disposition home or self-care (01) | DRG 247 ==
LOC: EC 07:14 → 3SCARD 08:54
PROVIDERS: ADMIT Family Medicine; ATTEND Family Medicine
PROC: 027034Z Dilation of Coronary Artery, One Artery with Drug-eluting Intraluminal Device, Percutaneous Approach (ICD-10-PCS; principal; 2019-05-13 08:25)
PROC: B2111ZZ Fluoroscopy of Multiple Coronary Arteries using Low Osmolar Contrast (ICD-10-PCS; principal; 2019-05-13 08:25)
PROC: 4A023N7 Measurement of Cardiac Sampling and Pressure, Left Heart, Percutaneous Approach (ICD-10-PCS; principal; 2019-05-13 08:25)
DX: I21.4 Non-ST elevation (NSTEMI) myocardial infarction (principal); I25.119 Atherosclerotic heart disease of native coronary artery with unspecified angina pectoris; E66.01 Morbid (severe) obesity due to excess calories; F17.210 Nicotine dependence, cigarettes, uncomplicated; F32.9 Major depressive disorder, single episode, unspecified; Z71.6 Tobacco abuse counseling; R73.03 Prediabetes; I11.9 Hypertensive heart disease without heart failure; K21.9 Gastro-esophageal reflux disease without esophagitis; Z82.49 Family history of ischemic heart disease and other diseases of the circulatory system; Z90.79 Acquired absence of other genital organ(s); Z90.5 Acquired absence of kidney; Z85.528 Personal history of other malignant neoplasm of kidney; Z85.47 Personal history of malignant neoplasm of testis; Z79.82 Long term (current) use of aspirin; Z79.899 Other long term (current) drug therapy
CPT/HCPCS: 36415; 71046; 80048; 80053; 80061; 83735; 84484; 85025; 85610; 85730; 93005; 93306; 93458; 93571; 96365; 96376; 99291; C1874

== ENCOUNTER → 2020-03-17 | Outpatient (CLI) | payer OTHER ==
--- NOTE | 2020-03-18 07:08 | CT ---
EXAMINATION TYPE: CT urogram wo/w con DATE OF EXAM: 03/17/2020 COMPARISON: None. No prior CT MRI or ultrasound is listed at this location. INDICATION: hematuria X 1 month DLP: 3721 mGycm, Automated exposure control for dose reduction was used. CONTRAST: 100 mL of Isovue 300. Study performed without Oral Contrast TECHNIQUE: Axial images were obtained from above the diaphragm to the pubic rami in the axial plane a t 5 mm thick sections. Reconstructed images are reviewed on the computer in the coronal plane. Thre e-D reconstructed images performed by the technologist on a separate computer through the renal colle cting system were obtained and presented. FINDINGS: Limited CT sections are obtained the lung bases. There is a 0.9 cm nodular density with some adjacen t pneumonitis change in the posterior medial left lung base. Complete CT chest with contrast recommen ded for additional evaluation. Neoplasm is not excluded.. CT ABDOMEN: Liver: There is mild diffuse fatty infiltration the liver. Spleen: Normal Pancreas: Normal Adrenal glands: The adrenal glands are normal. Gallbladder: Normal Kidneys: There is been a prior right nephrectomy. There is a isodense structure in the medullary region displacing the superior renal calyces. Hydronep hrosis is not present. Mid left renal mass should be considered. Additional workup is recommended. MR I with contrast recommended for additional evaluation. Left renal pelvis is normal. Ureter follows a normal caliber course and contour to the bladder. Inferior pole renal calyces are not well visualized but appear more normal than the superior pole. 0.7 cm mid to upper pole cortical renal cyst is prese nt. Series 9 image 33. This too small to classify as simple. Delayed images were obtained through th e left kidney. Aorta: Minimal Vascular calcification is within the aorta. Inferior vena cava: Normal. CT PELVIS: Loops of bowel within the abdomen and pelvis are normal. There are loops of bowel which are incom pletely distended or lack oral contrast limiting their evaluation. Appendix: Normal as visualized. Urinary bladder: Normal. Genitourinary structures: Prostate is normal Osseous structures: No suspicious lytic or sclerotic lesions. No expansile lesions are evident. IMPRESSIONS: 1. Isodense masslike area within the mid medullary left kidney displacing the superior pole renal ca lyces. Isodense mass is suspected. Contrast MRI is recommended for additional workup. 2. 0.9 cm nodule posterior medial left lung base. CT chest with contrast recommended for additional e valuation. Metastatic disease and neoplasm are not excluded.
== END | disposition home or self-care (01) ==
LOC: RADCTMAIN 15:48
PROVIDERS: ATTEND Urology
DX: R31.0 Gross hematuria (principal)
CPT/HCPCS: 82565; 84520; 74178; 36415; 74400; Q9967

== ENCOUNTER → 2020-08-31 | Outpatient (CLI) | payer OTHER ==
--- NOTE | 2020-09-01 02:13 | CT ---
EXAMINATION TYPE: CT chest wo con DATE OF EXAM: 08/31/2020 COMPARISON: None HISTORY: nodules CT DLP: 920.6 mGycm Automated exposure control for dose reduction was used. Images obtained from the thoracic inlet to the diaphragm without contrast. There is subpleural infiltrate in the posterior right lower lobe. There is 10 mm irregular nodular so ft tissue noncalcified infiltrate in the left lower lobe left paraspinal region this is adjacent to t he pleura and could be focal pleural thickening. There is no pleural effusion. Upper lobes are clear of infiltrate. There is no mediastinal adenopathy. There are no hilar masses. There is some coronary artery calcification. Heart size is normal. There is no pericardial effusion. The sternum is intact. Thoracic vertebra have normal alignment. The posterior elements are intact. Th ere is hypertrophic spur formation in the paraspinal right mid thoracic spine. I see no bony destruct vikram process. There are clips from apparent right nephrectomy. IMPRESSION: Subpleural infiltrate right lower lobe is likely inflammatory. Nonspecific nodular left paraspinal infiltrate could be arising from the pleura. This density appears not significantly different than the CT abdomen scan of 03/17/2020 Right lower lobe density slightly increased compared to old exam. I have overall low suspicion of malignancy.
== END | disposition home or self-care (01) ==
LOC: RADCTMAIN 16:49
PROVIDERS: ATTEND Family Medicine
DX: R91.8 Other nonspecific abnormal finding of lung field (principal); J98.4 Other disorders of lung
CPT/HCPCS: 71250

== ENCOUNTER → 2020-10-16 | Outpatient (CLI) | payer OTHER | END | disposition home or self-care (01) | LOC: RADPETMAIN 15:33 | PROVIDERS: ATTEND Internal Medicine Critical Care Medicine | DX: Z53.9 Procedure and treatment not carried out, unspecified reason (principal) ==

== ENCOUNTER → 2020-10-23 | Outpatient (CLI) | payer OTHER ==
--- NOTE | 2020-10-26 10:00 | PE ---
EXAMINATION TYPE: PET CT fusion skull to thigh DATE OF EXAM: 10/23/2020 COMPARISON: Chest CT August 31, 2020. CT urogram March 17, 2020. HISTORY: Solitary pulmonary nodule, abnormal CT. TECHNIQUE: Following the intravenous administration of 10.47 mCi of F-18 FDG, whole body images are performed from the skull base to the midthigh. Images are reviewed on the computer in the coronal, a xial, and sagittal planes. Reconstructed rotating images are created on independent workstation and reviewed on the computer. A localization and attenuation correction CT is performed in conjunction with the PET scan. Blood glucose level was 107. SCAN: Initial Scan FINDINGS: SKULL BASE AND NECK: No areas of suspicious abnormal hypermetabolic uptake. CHEST, MEDIASTINUM, AND HILAR REGION: Mild underlying emphysematous change. Posterior groundglass [place] suspected atelectasis right lower lobe redemonstrated. No abnormal hypermetabolic uptake. Persis tent slightly more nodular density medial left lower lobe axial image 130 measuring 1.1 x 1.0 cm kiah elates with axial image [address], this is ametabolic. Favor focal round atelectasis and/or sli ghtly nodular scarring. No areas of abnormal hypermetabolic uptake. ABDOMEN AND PELVIS: Normal excretion is present. Right kidney surgically absent. OSSEOUS STRUCTURES: No abnormal hypermetabolic uptake. OTHER CT: Heterogeneous enlarged thyroid gland redemonstrated. Low lung volumes and mild cardiomegaly redemonstrated. Spine somewhat straightened. IMPRESSION: No abnormal hypermetabolic uptake to suggest neoplasm. Consider follow-up CT in 6-12 osvaldo hs time to document nodule stability.
== END ==
LOC: RADPETMAIN 16:37
PROVIDERS: ATTEND Internal Medicine Critical Care Medicine
DX: R91.1 Solitary pulmonary nodule (principal)
CPT/HCPCS: 78815; A9552